=== PATIENT | female | born 1950 | race Caucasian/White ===

== ENCOUNTER 2017-11-01 07:49 | Emergency (ER) | payer BC ==
[2017-11-01 15:45] LABS: CHLORIDE,CL 103 mmol/L (101-111); SODIUM,NA 138 mmol/L (135-145)
--- NOTE | 2017-11-01 18:21 | CR ---
Clinical history: 67-year-old hypertensive morbidly obese patient who experienced a syncopal episode. Interpretation: No acute cardiopulmonary abnormality. Normal cardiac silhouette without cephalization of vascular flow, signs of alveolar edema or dependen t pleural effusion. No lung mass, hilar lymphadenopathy or focal lobar pneumonia. No pneumothorax or free subdiaphragmatic air.
--- NOTE | 2017-11-03 16:24 | EKG ---
11/01/2017 - PRAVIN HERNANDEZ - FINDINGS: I reviewed the EKG and agree with the machine's reading. [facility] /[id number]
== END 2017-11-01 10:14 ==
LOC: DL.ED 07:49
DX: I10 Essential (primary) hypertension (principal); E86.0 Dehydration
CPT/HCPCS: 36415; 71010; 80053; 81001; 84484; 85025; 96360; 99284

== ENCOUNTER → 2018-01-11 | Day surgery (SDC) | payer BC ==
[~2018-01-11] MED LIST: Cataract Ophth Solution EYELF ONE; Moxifloxacin 0.5% Ophth Soln 3 ML Bottle EYELF ONE; Ondansetron 4 MG/2 ML SDV IVPUSH PRN; Phenylephrine 10% Ophth Soln 5 ML Bot EYELF ONE; Phenylephrine 10% Ophth Soln 5 ML Bot EYELF PRN; Povidone-Iodine 5% Sterile Ophth Soln 30 ML Bottle EYELF ONE; Proparacaine 0.5% Ophth Soln 15 ML Bottle EYELF ONE; Proparacaine 0.5% Ophth Soln 15 ML Bottle ONE; Sodium Chloride 0.9% 10 ML Syringe FLUSH PRN; Timolol Maleate 0.5% Ophth Soln 5 ML Bottle EYELF ONE
[2018-01-11 06:50] VITALS: BP 128/80
== END ==
LOC: DL.SDS 06:32
PROVIDERS: ATTEND Ophthalmology
DX: H26.9 Unspecified cataract (principal); Z53.8 Procedure and treatment not carried out for other reasons
CPT/HCPCS: J7050

== ENCOUNTER 2019-01-02 06:25 | Day surgery (SDC) | payer MEDICARE, OTHER ==
[~2019-01-02 06:25] MED LIST changes: -Cataract Ophth Solution EYELF ONE; +Dextrose 5%-0.45% NaCl 1,000 ML IV SCH; +Midazolam 1 MG/ML 2 ML SDV ONE; -Moxifloxacin 0.5% Ophth Soln 3 ML Bottle EYELF ONE; -Ondansetron 4 MG/2 ML SDV IVPUSH PRN; -Phenylephrine 10% Ophth Soln 5 ML Bot EYELF ONE; -Phenylephrine 10% Ophth Soln 5 ML Bot EYELF PRN; -Povidone-Iodine 5% Sterile Ophth Soln 30 ML Bottle EYELF ONE; -Proparacaine 0.5% Ophth Soln 15 ML Bottle EYELF ONE; -Proparacaine 0.5% Ophth Soln 15 ML Bottle ONE; -Timolol Maleate 0.5% Ophth Soln 5 ML Bottle EYELF ONE; +fentaNYL 100 MCG/2 ML SDV ONE
[2019-01-02] MEDS ORDERED: fentaNYL 100 MCG/2 ML SDV IV ONE ×3 (06:26→07:35)
[2019-01-02] MEDS ORDERED: Midazolam 1 MG/ML 2 ML SDV IV ONE ×7 (06:26→07:47)
--- NOTE | 2019-01-02 08:20 | OR ---
DATE: 01/02/2019 PROCEDURE: Total colonoscopy, NBI, and cold snare polypectomy. INSTRUMENT USED: PCF-H190DL Olympus video colonoscope. PREMEDICATIONS: Fentanyl 100 mcg intravenous, Versed 4 mg intravenous. Nasal O2 cannula. The procedure was done under pulse oximetry, BP recording, and stencil typist. INDICATION: Screening colonoscopic examination is done for detection of any polypoid lesions and removal, endoscopic hemostasis therapy if needed. DESCRIPTION OF PROCEDURE: Initial rectal exam was unremarkable. Rigid anoscopy showed diminutive benign-appearing polyp without bleeding from it. The colonoscope was passed with ease. Photographs were taken. NBI views were obtained of the diminutive rectal polyp, cold snare polypectomy was done, the tissue was retrieved and sent for histopathology. The scope was passed with ease up to the ileocecal area, photographs were taken of the normal-appearing cecum identified by double-bulged ileocecal folds. Numerous scattered diverticula were noted, more so in the left colon. No bleeding was noted from any of the visualized areas at the commencement of the examination. The bowel preparation was found to be adequate, [place] scale 2. No stricture. No vascular ectasia. No large isolated ulcerations seen. No evidence of diffuse inflammatory bowel disease in the form of friability, contact bleeding, or ulcerations. Probing the proximal sides of folds and flexures, using adequate distention and clearing of the stool material, withdrawal of the scope was made, cecum to rectum time over 6 minutes. No bleeding was noted form any of the visualized areas at the completion of the examination. IMPRESSION: 1. Diminutive rectal polyp. 2. Diverticulosis. The patient tolerated the procedure well. [facility] /[id number]
[2019-01-02 11:47] VITALS: BP 112/92
== END 2019-01-02 09:58 | disposition home or self-care (01) ==
LOC: DL.ENDO 06:25
PROVIDERS: ATTEND Internal Medicine Gastroenterology
DX: Z12.11 Encounter for screening for malignant neoplasm of colon (principal); D12.8 Benign neoplasm of rectum; K57.30 Diverticulosis of large intestine without perforation or abscess without bleeding; I10 Essential (primary) hypertension; E66.09 Other obesity due to excess calories; E78.5 Hyperlipidemia, unspecified; R73.9 Hyperglycemia, unspecified
CPT/HCPCS: 45385; J2250; J3010; J7042

== ENCOUNTER 2020-08-16 23:53 | Emergency (ER) | payer MEDICARE, OTHER ==
[2020-08-16] MEDS ORDERED: EPINEPHrine 1:10,000 1 MG/10 ML Syringe IV ONE (23:54)
[2020-08-16] MEDS ORDERED: Calcium Chloride 10% 1 GM/10 ML Syringe IV ONE (23:54)
[2020-08-16] MEDS ORDERED: Atropine 0.1 MG/ML 10 ML Syringe IV ONE (23:54)
[2020-08-16] MEDS ORDERED: Sodium Bicarbonate 8.4% 50 MEQ/50 ML Syringe IV ONE (23:54)
[2020-08-17 00:05] VITALS: PULSE 107
--- NOTE | 2020-08-17 01:59 | EDM.PDOC ---
ED HPI GENERAL MEDICAL PROBLEM - General Chief Complaint: Respiratory Problem Stated Complaint: AMBULANCE Time Seen by Provider: 08/17/20 00:05 Source of Information: Reports: Patient, EMS, EMS Notes Reviewed, Family, RN, RN Notes Reviewed History Limitations: Reports: Respiratory Distress - History of Present Illness INITIAL COMMENTS - FREE TEXT/NARRATIVE: Pt presents to ER per [facility] with c/o SOB, progressively getting worse since . Patient denies any known exposure to COVID, states she tries not to leave the house. Patient in distress, speaking about 2 words between breaths. Patient appears uncomfortable, trying to reposition frequently. Denied any health problems except hypertension, states the patient had a-fib. Pt states she had been running a fever and chills today. C/o nausea. Denies chest pains. Onset: Gradual - Related Data Allergies Allergy/AdvReac Type Severity Reaction Status Date / Time No Known Allergies Allergy Verified 08/16/20 23:53 Home Meds: Home Meds Aspirin [Ecotrin] 81 mg PO DAILY 08/09/14 [History] Calcium Carbonate/Vitamin D3 [Calcium 600 + Vit D 400] 1 tab PO BID 08/09/14 [History] Fish Oil/[place]-3 Fatty Acids [Fish Oil] 1 cap PO DAILY 08/09/14 [History] [id number] 149-Hyal [Glucosamine Chondroitin Complx] 2 tab PO DAILY 08/09/14 [History] Metoprolol Tartrate [Lopressor] 75 mg PO DAILY 08/09/14 [History] Multivitamin with Minerals [Multiple Vitamin] 1 tab PO DAILY 08/09/14 [History] Vitamin B Complex [B Complex] 1 tab PO DAILY 08/09/14 [History] atorvaSTATin [Lipitor] 20 mg PO BEDTIME 08/09/14 [History] Biotin 10 mg PO DAILY 01/09/18 [History] Latanoprost 1 drop EYEBOTH BEDTIME 01/09/18 [History] Lisinopril 10 mg PO DAILY 01/09/18 [History] Acetaminophen [Acetaminophen Extra Strength] 1,000 mg PO Q6H 01/02/19 [History] Chlorthalidone 25 mg PO DAILY 01/02/19 [History] Past Medical History HEENT History: Reports: Cataract, Glaucoma, Sinusitis Cardiovascular History: Reports: High Cholesterol, Hypertension Respiratory History: Reports: Bronchitis, Recurrent Gastrointestinal History: Reports: None Genitourinary History: Reports: None [employer] History: Reports: Musculoskeletal History: Reports: Arthritis Neurological History: Reports: Neuropathy, Peripheral, Vertigo, Other (See Below) Other Neuro History: PERONEAL NEUROPATHY. PHEREDITARY AND IDIOPATHIC PERIPHERAL NEUROPATHY Psychiatric History: Reports: None Endocrine/Metabolic History: Reports: None Hematologic History: Reports: None Immunologic History: Reports: None Oncologic (Cancer) History: Reports: Other (See Below) Other Oncologic History: ENDOMETRIAL CA Dermatologic History: Reports: None - Infectious Disease History Infectious Disease History: Reports: Chicken Pox, Measles, Mumps - Past Surgical History HEENT Surgical History: Reports: Cataract Surgery Cardiovascular Surgical History: Reports: None Respiratory Surgical History: Reports: None GI Surgical History: Reports: Appendectomy Female Surgical History: Reports: Section, Hysterectomy, Salpingo- Oophorectomy, Tubal Ligation Neurological Surgical History: Reports: Laminectomy, Lumbar Spine Musculoskeletal Surgical History: Reports: Other (See Below) Other Musculoskeletal Surgeries/Procedures:: disc replacements to back Social & Family History - Caffeine Use Caffeine Use: Reports: Tea Caffeine Use Comment: RARE ED ROS GENERAL - Review of Systems Review Of Systems: Comprehensive ROS is negative, except as noted in HPI. ED EXAM, GENERAL - Physical Exam Exam: See Below Exam Limited By: Respiratory Distress General Appearance: Alert, Severe Distress Eye Exam: Bilateral Eye: EOMI, Normal Inspection Ears: Normal External Exam, Hearing Grossly Normal Nose: Normal Inspection Throat/Mouth: Normal Inspection, Normal Lips, Normal Teeth, Normal Voice Head: Atraumatic, Normocephalic Neck: Normal Inspection, Supple, Non-Tender, Full Range of Motion Respiratory/Chest: Respiratory Distress, Decreased Breath Sounds, Other (very little air movement appreciated) Cardiovascular: Normal Peripheral Pulses (weak), Regular Rate, Rhythm, No Gallop, No JVD, No Murmur, No Rub Peripheral Pulses: 1+: Radial (L), Radial (R) GI/Abdominal: Normal Bowel Sounds, Non-Tender, Distended (Female) Exam: Deferred Rectal (Female) Exam: Deferred Back Exam: Normal Inspection, Decreased Range of Motion Extremities: Normal Inspection, Pedal Edema (+1-2), Slow Capillary Refill Neurological: Alert, Oriented, Normal Cognition Psychiatric: Anxious Skin Exam: Cool, Cyanosis, Diaphoretic Lymphatic: No Adenopathy Course - Vital Signs Last Recorded V/S: Last Vital Signs Temp Pulse 107 H 08/17/20 00:04 Resp 26 H 08/17/20 00:04 BP Pulse Ox 94 L 08/17/20 00:04 - Orders/Labs/Meds Labs: Laboratory Tests 08/17/20 08/17/20 Range/Units 00:15 00:30 WBC 14.5 H (5.0-10.0) 10^3/uL RBC 4.95 (4.2-5.4) 10^6/uL Hgb 15.4 (12.0-16.0) g/dL Hct 46.4 (37.0-47.0) % MCV 93.7 D (80-100) fL MCH 31.1 (27.0-34.0) pg MCHC 33.2 (33.0-35.0) g/dL Plt Count 151 (150-450) 10^3/uL Neut % (Auto) 63.8 (42.2-75.2) % Lymph % (Auto) 26.6 (20.5-50.1) % [place] % (Auto) 7.9 (2-8) % Eos % (Auto) 1.5 (1.0-3.0) % Baso % (Auto) 0.2 (0.0-1.0) % SARS CoV-2 RNA Rapid ADRIANO Negative (NEGATIVE) Meds: Medications Discontinued Medications Generic Name Dose Route Start Last Admin Trade Name Ernestoq PRN Reason Stop Dose Admin Atropine Sulfate Confirm 08/17/20 02:53 Atropine 0.1 Mg/Ml Administered 08/17/20 02:54 Dose 1 mg .ROUTE .STK-MED ONE Calcium Chloride Confirm 08/17/20 02:59 Calcium Chloride 10% Administered 08/17/20 03:00 Dose 1 gm .ROUTE .STK-MED ONE Epinephrine HCl Confirm 08/17/20 02:55 Epinephrine 1:10,000 Administered 08/17/20 02:56 Dose 7 mg .ROUTE .STK-MED ONE Sodium Bicarbonate Confirm 08/17/20 03:52 Sodium Bicarbonate 8.4% Administered 08/17/20 03:53 Dose 100 meq .ROUTE .STK-MED ONE - Re-Assessments/Exams Free Text/Narrative Re-Assessment/Exam: 08/17/20 01:56 Patient arrived to the ER per [facility] alert and talking. Patient having difficulty speaking in sentences as she is so winded. Patient went into cardiac arrest while nursing staff attempting IV access. See Code Blue sheets for further details. Patient intubated per Segundo Wang CRNA. Father Juwan called, present with . Patient taken to [facility]. 08/17/20 03:29 Departure - Departure Time of Disposition: 04:11 Disposition: 20 Preliminary Cause of *Q: Cardiac Arrest Clinical Impression: Cardiac arrest - Discharge Information *PRESCRIPTION DRUG MONITORING PROGRAM REVIEWED*: No *COPY OF PRESCRIPTION DRUG MONITORING REPORT IN PATIENT CED: No Referrals: PCP,None [Primary Care Provider] - Forms: ED Department Discharge Sepsis Event Note (ED) - Evaluation Sepsis Screening Result: No Definite Risk
[2020-08-17] MEDS ORDERED: Atropine 0.1 MG/ML 10 ML Syringe ONE (02:53)
[2020-08-17] MEDS ORDERED: EPINEPHrine 1:10,000 1 MG/10 ML Syringe ONE (02:55)
[2020-08-17] MEDS ORDERED: Calcium Chloride 10% 1 GM/10 ML Syringe ONE (02:59)
[2020-08-17] MEDS ORDERED: Sodium Bicarbonate 8.4% 50 MEQ/50 ML SDV ONE (03:52)
== END 2020-08-17 00:41 | disposition expired ==
LOC: DL.ED 23:53
DX: I46.9 Cardiac arrest, cause unspecified (principal); M19.90 Unspecified osteoarthritis, unspecified site; E78.00 Pure hypercholesterolemia, unspecified; I10 Essential (primary) hypertension; Z85.42 Personal history of malignant neoplasm of other parts of uterus; Z79.82 Long term (current) use of aspirin; Z79.899 Other long term (current) drug therapy
CPT/HCPCS: 31500; 36415; 85025; 92950; 93005; 96374; 96375; 99285; J0171; J0461; U0002